=== PATIENT | female | born 1945 | race Caucasian/White ===

== ENCOUNTER 2018-11-21 13:01 | Emergency (ER) | payer OTHER, MEDICARE ==
[2018-11-21 13:48] VITALS: BP 133/72; PULSE 67; TEMP 98.5; BMI 51.6
--- NOTE | 2018-11-21 13:50 | PDOC ---
History of Present Illness - General Chief Complaint: Pain, Acute Stated Complaint: LEFT ABD PAIN Time Seen by Provider: 11/21/18 13:33 - History of Present Illness Initial Comments: 11/21/18 14:03 73f with pmh of advanced alzheimer's presents to the ed with aide for LLQ pain since last night. Although the patient is mildly aphasic, uses a long of the wrong words in her speech, she describes the pain a moving down her side. She appears anxious and hyperventilating. Aide doesn't know anything about the rest of the patient's history execept that the patient has a wound to the left leg for which she's not taking abx for Past History - Past Medical History Allergies/Adverse Reactions: Allergies Allergy/AdvReac Type Severity Reaction Status Date / Time No Known Allergies Allergy Verified 11/21/18 13:20 Home Medications: Ambulatory Orders Valacyclovir HCl [Valtrex -] 1,000 mg PO TID 7 Days #21 tablet 11/21/18 - Suicide/Smoking/Psychosocial Hx Smoking History: Unknown if ever smoked Hx Alcohol Use: No Drug/Substance Use Hx: No Review of Systems - Review of Systems Able to Perform ROS?: No (demented.) *Physical Exam - Vital Signs Last Vital Signs Temp Pulse Resp BP Pulse Ox 98.5 F 67 18 133/72 100 11/21/18 13:02 11/21/18 13:02 11/21/18 13:02 11/21/18 13:02 11/21/18 13:02 - Physical Exam General Appearance: Yes: Thin HEENT: positive: EOMI, MESERET, Normal ENT Inspection Respiratory/Chest: positive: Lungs Clear, Normal Breath Sounds. negative: Chest Tender, Respiratory Distress Cardiovascular: positive: Regular Rhythm, Regular Rate, S1, S2 Gastrointestinal/Abdominal: positive: Tender (LLQ, ovoid macular rash over skin fold. ) Extremity: positive: Other (3x3 circular open purulent wound over left anterior leg. ) Integumentary: positive: Other (possible early papular rash over back dermatome) Neurologic: positive: Alert, Other (exquisitely demented) ED Treatment Course - LABORATORY CBC & Chemistry Diagram: 11/21/18 13:42 11/21/18 13:42 Medical Decision Making - Medical Decision Making 11/21/18 15:39 Shingles vs diverticulitis vs constipation vs volvulus Due to the patient's poor history and ability to express her pain clearly we will be liberal with testing for basic labs, cxr, lactate, cultures and ct abd/ pelvis 11/21/18 17:13 All labs negative, Ct abdomen and pelvis negative for acute processes. No constipation, no volvulus. Will treat for shingles with valacyclovir and send RX. Ok to discharge. *DC/Admit/Observation/Transfer Diagnosis at time of Disposition: Shingles - Discharge Dispostion Disposition: HOME Condition at time of disposition: Stable Decision to Admit order: No - Prescriptions Prescriptions: Valacyclovir HCl [Valtrex -] 1,000 mg PO TID 7 Days #21 tablet - Referrals - Patient Instructions Printed Discharge Instructions: DI for Shingles Additional Instructions: Come back to the emergency department fcor any new, worsening or concerning symptoms. 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 - Post Discharge Activity
[2018-11-21] MEDS ORDERED: morphine CARPU-JECT 2 MG/1 ML DISP.SYRIN IVPUSH ONE (14:31)
[2018-11-21] MEDS ORDERED: morphine SULFATE 4 MG/ML VIAL ONE (14:41)
[2018-11-21 14:45] LABS: BASO % 0.9 % (0-2.0); EOS % 2.6 % (0-4.5); HEMATOCRIT 37.7 % (32.4-45.2); HEMOGLOBIN 12.3 GM/dl (10.7-15.3); LYMPH % 29.8 % (8-40); MCH 28.5 pg (25.7-33.7); MCHC 32.6 g/dl (32.0-36.0); MEAN CELL VOLUME 87.3 fl (80-96); MEAN PLT VOLUME 8.3 fl (7.5-11.1); MONO % 12.2 % (3.8-10.2); NEUT % 54.5 % (42.8-82.8); PLATELET COUNT 237 K/MM3 (134-434); RBC 4.32 M/mm3 (3.60-5.2); RDW 12.6 % (11.6-15.6); WHITE BLOOD COUNT 5.4 K/mm3 (4.0-10.8)
[2018-11-21 14:54] LABS: ALBUMIN 3.7 g/dl (3.4-5.0); ALK PHOS 91 U/L (45-117); ANION GAP 7 MMOL/L (8-16); BILIRUBIN,TOTAL 0.7 mg/dl (0.2-1); BLOOD UREA NITROGEN 15 mg/dl (7-18); CHLORIDE 106 mmol/L (98-107); CO2 25 mmol/L (21-32); CREATININE 0.9 mg/dl (0.55-1.3); GLUCOSE,RANDOM 87 mg/dl (74-106); POTASSIUM 3.7 mmol/L (3.5-5.1); SGOT/AST 22 U/L (15-37); SGPT/ALT 14 U/L (13-61); SODIUM 138 mmol/L (136-145); TOT PROT 6.6 g/dl (6.4-8.2)
--- NOTE | 2018-11-21 15:42 | PDOC ---
Attending Attestation - Resident Resident Name: Shane Rodriguez - ED Attending Attestation I have performed the following: I have examined & evaluated the patient, The case was reviewed & discussed with the resident, I agree w/resident's findings & plan - HPI HPI: 11/21/18 15:37 73-year-old female with history of dementia, chronic left lower extremity wound , presents brought in by aid with left lower quadrant abdominal pain today. Patient had 2 or 3 separate episodes of severe left lower quadrant pain, no associated nausea/vomiting/diarrhea/constipation, last bowel movement was yesterday and was within normal limits. Although history/review of systems Limited by dementia, no reports of dysuria or frequency or hematuria. No known surgical history, no other complaints. No fevers or chills - Physicial Exam PE: 11/21/18 15:38 Vital signs are within normal limits Patient is alert and well-appearing, baseline dementia, following all commands and conversant with occasional nonsensical speech, which is her baseline per home health aide No jaundice or pallor, moist mucosa Heart is regular, lungs are clear Abdomen is soft/distended. Slight discomfort to deep palpation in the left lower quadrant, no guarding or rebound. No CVA tenderness. 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 Neurovascular intact distally. Skin notable for about 3 cm rounded patch of erythema in a skin fold in the left lower quadrant, and associated subtle area of papular erythema in the left low back, similar dermatome T11 or T12. These lesions are very sensitive to very light touch, no associated cellulitis or induration or discharge - Medical Decision Making 11/21/18 15:40 73-year-old female with left lower quadrant abdominal pain, non-peritoneal abdominal exam and findings that could be consistent with early shingles and T11 or T12 dermatome. Hemodynamically stable, no other red flags on history or physical exam. Labs, urinalysis are within normal limits without leukocytosis or evidence of infection on urinalysis CT of the abdomen and pelvis to assess left lower quadrant pain EKG without acute pathology If above is within normal limits, will treat for shingles with PCP follow-up 11/21/18 17:10 labs, ua, ctap all wnl. well appearing without further complaints of pain. at bedside confirms pt at baseline will treat for zoster with valtrex, stable for dc and understands return criteria Heart Score/ECG Review #1 ECG reviewed & interpreted by me at: 14:06 General ECG Interpretation: Sinus Rhythm, Normal Rate (70), Normal Intervals ( left bundle branch block pattern with qrs 130, qtc 470), No acute ischemic changes Compared to previous ECG there are: Previous ECG unavail
[2018-11-21 16:10] LABS: LIPASE 224 U/L (73-393)
[2018-11-21] MEDS ORDERED: valACYclovir HCL 1000 MG TABLET PO ONE (17:07)
[2018-11-21] MEDS ORDERED: valACYclovir HCL 500 MG TABLET (FP) ONE (17:09)
--- NOTE | 2018-11-22 12:23 | EKG ---
Test Reason : Blood Pressure : / mmHG Vent. Rate : 070 BPM Atrial Rate : 070 BPM P-R Int : 176 ms QRS Dur : 130 ms QT Int : 436 ms P-R-T Axes : 067 099 016 degrees QTc Int : 470 ms NORMAL SINUS RHYTHM POSSIBLE LEFT ATRIAL ENLARGEMENT RIGHTWARD AXIS NON-SPECIFIC INTRA-VENTRICULAR CONDUCTION BLOCK ABNORMAL ECG WHEN COMPARED WITH ECG OF 30-OCT-2003 15:50, PREMATURE SUPRAVENTRICULAR COMPLEXES ARE NO LONGER PRESENT MINIMAL CRITERIA FOR ANTEROSEPTAL INFARCT ARE NO LONGER PRESENT T WAVE INVERSION NOW EVIDENT IN INFERIOR LEADS Confirmed by NIKKI PHILLIPS, ANATOLIY ([id number]) on 11/22/2018 12:23:31 PM Referred By: BRENDA MCNEAL Confirmed By:ANATOLIY JORDAN MD
== END 2018-11-21 17:29 | disposition home or self-care (01) ==
LOC: FER 13:01
PROC: 3E033NZ Introduction of Analgesics, Hypnotics, Sedatives into Peripheral Vein, Percutaneous Approach (ICD-10-PCS; principal; 2018-11-21)
DX: B02.9 Zoster without complications (principal)
CPT/HCPCS: 36415; 71045-TC-FY; 74177-TC; 80053; 81003; 82550; 83605; 83690; 84484; 85025; 87040; 87070; 87205; 93005; 96374; 99283-25

== ENCOUNTER 2018-12-21 16:40 | Observation (INO) | payer OTHER, MEDICARE ==
[2018-12-21 18:18] LABS: BASO % 1.9 % (0-2.0); EOS % 2.9 % (0-4.5); HEMOGLOBIN 13.6 GM/dl (10.7-15.3); LYMPH % 25.9 % (8-40); MCH 29.7 pg (25.7-33.7); MCHC 34.1 g/dl (32.0-36.0); MEAN CELL VOLUME 87.1 fl (80-96); MEAN PLT VOLUME 8.2 fl (7.5-11.1); MONO % 10.9 % (3.8-10.2); NEUT % 58.4 % (42.8-82.8); PLATELET COUNT 252 K/MM3 (134-434); RBC 4.59 M/mm3 (3.60-5.2); RDW 13.4 % (11.6-15.6); WHITE BLOOD COUNT 6.6 K/mm3 (4.0-10.8)
[2018-12-21 18:32] LABS: CALCIUM 9.7 mg/dl (8.5-10); CREATININE 0.9 mg/dl (0.55-1.3); POTASSIUM 3.5 mmol/L (3.5-5.1)
--- NOTE | 2018-12-21 19:02 | PDOC ---
Documentation entered by Linda Vazquez SCRIBE, acting as scribe for Anita Bhagat MD. Anita Bhagat MD: This documentation has been prepared by the Taylor kasper Xhesika, SCRIBE, under my direction and personally reviewed by me in its entirety. I confirm that the documentation accurately reflects all work, treatment, procedures, and medical decision making performed by me. History of Present Illness - General History Source: Patient, Spouse Exam Limitations: No Limitations, Dementia - History of Present Illness Initial Comments: 12/21/18 18:20 The patient is a 73 year old female, with a significant PMH of AVR, PPM, hypothyroidism, chronic L lower extremity wound, Alzheimer's and Shingles who presents to the emergency department with 10 days of L shoulder pain. As per , the patient has been having trouble sleeping, was advised to take 1 tablet of melatonin, took her first dose yesterday and the patient slept from 10pm last night -2pm this afternoon. As per , he received a call at 10: 30am today from patients aid stating the patient is crying from excruciating L shoulder pain. The patient describes the L shoulder pain as sharp intermittent pain that radiates down her left arm. Pt is a poor historian due to alzheimer's dementia. The patient denies any recent falls or trauma. The patient denies chest pain, shortness of breath or dizziness. The patient denies fever, chills, nausea, vomiting, diarrhea or constipation. The patient denies dysuria, frequency, urgency or hematuria. Allergy: latex, penicillins Social History: None reported PCP: Dr. Emiliano Lucas Dental Technician: Vinnie Briscoe <Anita Bhagat - Last Filed: 12/21/18 19:02> <Mony Gay - Last Filed: 12/21/18 19:50> - General Chief Complaint: Pain, Acute Stated Complaint: LEFT ARM PAIN Past History - Suicide/Smoking/Psychosocial Hx Smoking History: Unknown if ever smoked Hx Alcohol Use: No Drug/Substance Use Hx: No <Anita Bhagat - Last Filed: 12/21/18 19:02> <Mony Gay - Last Filed: 12/21/18 19:50> - Past Medical History Allergies/Adverse Reactions: Allergies Allergy/AdvReac Type Severity Reaction Status Date / Time erythromycin base Allergy Verified 12/21/18 17:46 latex Allergy Verified 12/21/18 17:46 oxytetracycline Allergy Verified 12/21/18 17:46 [From Terramycin] Penicillins Allergy Verified 12/21/18 17:46 povidone-iodine Allergy Verified 12/21/18 17:46 [From Betadine] procaine [From Novocain] Allergy Verified 12/21/18 17:46 soap [From Betadine] Allergy Verified 12/21/18 17:46 aueomycin Allergy Uncoded 12/21/18 17:46 tape Allergy Uncoded 12/21/18 17:46 Home Medications: Ambulatory Orders Valacyclovir HCl [Valtrex -] 1,000 mg PO TID 7 Days #21 tablet 11/21/18 Clopidogrel Bisulfate [Plavix] 75 mg PO DAILY 12/21/18 Levothyroxine [Synthroid -] 100 mcg PO DAILY 12/21/18 Review of Systems - Review of Systems Able to Perform ROS?: Yes Comments:: 12/21/18 18:24 GENERAL/CONSTITUTIONAL: No fever or chills. No weakness. HEAD, EYES, EARS, NOSE AND THROAT: No change in vision. No ear pain or discharge. No sore throat. GASTROINTESTINAL: No nausea, vomiting, diarrhea or constipation. GENITOURINARY: No dysuria, frequency, or change in urination. CARDIOVASCULAR: No chest pain or shortness of breath. RESPIRATORY: No cough, wheezing, or hemoptysis. MUSCULOSKELETAL: (+) L shoulder pain. No joint or muscle swelling or pain. No neck or back pain. SKIN: No rash NEUROLOGIC: No headache, vertigo, loss of consciousness, or change in strength/ sensation. ENDOCRINE: No increased thirst. No abnormal weight change. HEMATOLOGIC/LYMPHATIC: No anemia, easy bleeding, or history of blood clots. ALLERGIC/IMMUNOLOGIC: No hives or skin allergy. All Other Systems: Reviewed and Negative <Nassef,Yomna - Last Filed: 12/21/18 19:02> *Physical Exam - Vital Signs Last Vital Signs Temp Pulse Resp BP Pulse Ox 97.8 F 72 16 111/70 100 12/21/18 16:41 12/21/18 16:41 12/21/18 16:41 12/21/18 16:41 12/21/18 16:41 - Physical Exam Comments: 12/21/18 19:01 GENERAL: Awake, alert, and fully oriented, in no acute distress HEAD: No signs of trauma EYES: PERRLA, EOMI, sclera anicteric, conjunctiva clear ENT: Auricles normal inspection, hearing grossly normal, nares patent, oropharynx clear without exudates. Moist mucosa NECK: Normal ROM, supple, no lymphadenopathy, JVD, or masses LUNGS: Breath sounds equal, clear to auscultation bilaterally. No wheezes, and no crackles HEART: Regular rate and rhythm, normal S1 and S2, no murmurs, rubs or gallops ABDOMEN: Soft, nontender, normoactive bowel sounds. No guarding, no rebound. No masses EXTREMITIES: Normal range of motion, no edema. No cords, erythema, or tenderness NEUROLOGICAL: Normal speech, cranial nerves intact, equal strength and sensation b/l SKIN: Warm, Dry, normal turgor, no rashes or lesions noted. <Nassef,Yomna - Last Filed: 12/21/18 19:02> - Vital Signs Last Vital Signs Temp Pulse Resp BP Pulse Ox 97.8 F 72 16 111/70 100 12/21/18 16:41 12/21/18 16:41 12/21/18 16:41 12/21/18 16:41 12/21/18 16:41 <Mony Gay - Last Filed: 12/21/18 19:50> ED Treatment Course - LABORATORY CBC & Chemistry Diagram: 12/21/18 18:03 12/21/18 18:03 - ADDITIONAL ORDERS Additional order review: Laboratory Results 12/21/18 12/21/18 18:03 18:03 Sodium 140 Potassium 3.5 Chloride 104 Carbon Dioxide 23 Anion Gap 13 BUN 16 Creatinine 0.9 Est GFR (CKD-EPI)AfAm 73.52 Est GFR (CKD-EPI)NonAf 63.43 Random Glucose 87 Calcium 9.7 Total Bilirubin 1.0 AST 25 ALT 18 Alkaline Phosphatase 86 Troponin I < 0.03 Total Protein 7.0 Albumin 4.0 12/21/18 18:03 RBC 4.59 MCV 87.1 MCHC 34.1 RDW 13.4 MPV 8.2 Neutrophils % 58.4 Lymphocytes % 25.9 Monocytes % 10.9 H Eosinophils % 2.9 Basophils % 1.9 - RADIOLOGY Radiology Studies Ordered: Category Date Time Status CHEST X-RAY PORTABLE* [RAD] Stat Radiology 12/21/18 17:43 Taken SHOULDER-LEFT [RAD] Stat Radiology 12/21/18 17:44 Taken <Anita Bhagat - Last Filed: 12/21/18 19:02> - LABORATORY CBC & Chemistry Diagram: 12/21/18 18:03 12/21/18 18:03 - ADDITIONAL ORDERS Additional order review: Laboratory Results 12/21/18 12/21/18 18:03 18:03 Sodium 140 Potassium 3.5 Chloride 104 Carbon Dioxide 23 Anion Gap 13 BUN 16 Creatinine 0.9 Est GFR (CKD-EPI)AfAm 73.52 Est GFR (CKD-EPI)NonAf 63.43 Random Glucose 87 Calcium 9.7 Total Bilirubin 1.0 AST 25 ALT 18 Alkaline Phosphatase 86 Troponin I < 0.03 Total Protein 7.0 Albumin 4.0 12/21/18 18:03 RBC 4.59 MCV 87.1 MCHC 34.1 RDW 13.4 MPV 8.2 Neutrophils % 58.4 Lymphocytes % 25.9 Monocytes % 10.9 H Eosinophils % 2.9 Basophils % 1.9 <Mony Gay - Last Filed: 12/21/18 19:50> Medical Decision Making - Medical Decision Making 12/21/18 19:45 Care of this patient received from Dr Bhagat. Because of the unclear nature of the patient's severe left upper arm/shoulder pain, patient will be admitted, observation status Case discussed with [facility] : patient will be admitted, telemetry observation status for full rule/out of NC and further evaluation of left arm pain. Also, assessment for further home care support will be addressed. <Mony Gay - Last Filed: 12/21/18 19:50> *DC/Admit/Observation/Transfer - Discharge Dispostion Decision to Admit order Date/Time: Decision to Admit Order Category Date Time Status Decision to Admit to Hospital Routine Admission 12/21/18 18:58 Ordered <Anita Bhagat - Last Filed: 12/21/18 19:02> <Mony Gay - Last Filed: 12/21/18 19:50> Diagnosis at time of Disposition: Left arm pain Dementia Qualifiers: Dementia type: unspecified type Dementia behavioral disturbance: with behavioral disturbance Qualified Code(s): F03.91 - Unspecified dementia with behavioral disturbance - Discharge Dispostion Condition at time of disposition: Fair
--- NOTE | 2018-12-21 19:14 | PDOC ---
*Physical Exam - Vital Signs Last Vital Signs Temp Pulse Resp BP Pulse Ox 97.8 F 72 16 111/70 100 12/21/18 16:41 12/21/18 16:41 12/21/18 16:41 12/21/18 16:41 12/21/18 16:41 ED Treatment Course - LABORATORY CBC & Chemistry Diagram: 12/21/18 18:03 12/21/18 18:03 - ADDITIONAL ORDERS Additional order review: Laboratory Results 12/21/18 12/21/18 18:03 18:03 Sodium 140 Potassium 3.5 Chloride 104 Carbon Dioxide 23 Anion Gap 13 BUN 16 Creatinine 0.9 Est GFR (CKD-EPI)AfAm 73.52 Est GFR (CKD-EPI)NonAf 63.43 Random Glucose 87 Calcium 9.7 Total Bilirubin 1.0 AST 25 ALT 18 Alkaline Phosphatase 86 Troponin I < 0.03 Total Protein 7.0 Albumin 4.0 12/21/18 18:03 RBC 4.59 MCV 87.1 MCHC 34.1 RDW 13.4 MPV 8.2 Neutrophils % 58.4 Lymphocytes % 25.9 Monocytes % 10.9 H Eosinophils % 2.9 Basophils % 1.9 *DC/Admit/Observation/Transfer Diagnosis at time of Disposition: Left arm pain Dementia Qualifiers: Dementia type: unspecified type Dementia behavioral disturbance: with behavioral disturbance Qualified Code(s): F03.91 - Unspecified dementia with behavioral disturbance - Discharge Dispostion Condition at time of disposition: Fair Decision to Admit order: Yes - Referrals - Patient Instructions - Post Discharge Activity
--- NOTE | 2018-12-21 19:32 | HP ---
CHIEF COMPLAINT:Left shoulder pain PCP:Dr. Emiliano Lucas HISTORY OF PRESENT ILLNESS: Linda Honeycutt is a 73 year old female, with a significant PMH of AVR, PPM, hypothyroidism, chronic L lower extremity wound, Alzheimer's and Shingles who presents to the emergency department with 10 days of L shoulder pain, pt is poor historian due to Alzheimer's. 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 pt has 2 more days of valcyclovir, as per pt did not take everyday. pt in ED, ambulating in room, holding cane and red purse in left arm, has pain when lifting arm, but able to pull pants up without pain. pt confused, ER course was notable for: (1)1st trop 0.03 (2)EKG unchanged (3)labs wnl Recent Travel: PAST MEDICAL HISTORY:AVR, PPM, hypothyroidism, chronic L lower extremity wound , Alzheimer's and Shingles PAST SURGICAL HISTORY: Social History: Smoking:unknown Alcohol:no Drugs: no Family History: Allergies erythromycin base Allergy (Verified 12/21/18 17:46) latex Allergy (Verified 12/21/18 17:46) oxytetracycline [From Terramycin] Allergy (Verified 12/21/18 17:46) Penicillins Allergy (Verified 12/21/18 17:46) povidone-iodine [From Betadine] Allergy (Verified 12/21/18 17:46) procaine [From Novocain] Allergy (Verified 12/21/18 17:46) soap [From Betadine] Allergy (Verified 12/21/18 17:46) aueomycin Allergy (Uncoded 12/21/18 17:46) tape Allergy (Uncoded 12/21/18 17:46) HOME MEDICATIONS: Home Medications Medication Instructions Recorded Valacyclovir HCl [Valtrex -] 1,000 mg PO TID 7 Days #21 tablet 11/21/18 Clopidogrel Bisulfate [Plavix] 75 mg PO DAILY 12/21/18 Levothyroxine [Synthroid -] 100 mcg PO DAILY 12/21/18 REVIEW OF SYSTEMS Unable to assess, pt with dementia PHYSICAL EXAMINATION Vital Signs - 24 hr 12/21/18 16:41 Temperature 97.8 F Pulse Rate 72 Respiratory 16 Rate Blood Pressure 111/70 O2 Sat by Pulse 100 Oximetry (%) GENERAL: Awake, alert, and fully oriented, in no acute distress. HEAD: Normal with no signs of trauma. EYES: Pupils equal, round and reactive to light, extraocular movements intact, sclera anicteric, conjunctiva clear. No lid lag. EARS, NOSE, THROAT: Ears normal, nares patent, oropharynx clear without exudates. Moist mucous membranes. NECK: Normal range of motion, supple without lymphadenopathy, JVD, or masses. LUNGS: Breath sounds equal, clear to auscultation bilaterally. No wheezes, and no crackles. No accessory muscle use. HEART: Regular rate and rhythm, normal S1 and S2 without murmur, rub or gallop. ABDOMEN: Soft, nontender, not distended, normoactive bowel sounds, no guarding, no rebound, no masses. No hepatomegaly or splenomegaly. MUSCULOSKELETAL: pain when lifting left arm, . No bony deformities or tenderness. No CVA tenderness. UPPER EXTREMITIES: 2+ pulses, warm, well-perfused. No cyanosis. No clubbing. No peripheral edema. LOWER EXTREMITIES: 2+ pulses, warm, well-perfused. No calf tenderness. No peripheral edema. NEUROLOGICAL: Cranial nerves II-XII intact. Normal speech. Normal gait. PSYCHIATRIC: uncooperative. Good eye contact. Appropriate mood and affect. SKIN: mild redness on left side, no crusted vesicles noted, Warm, dry, normal turgor, no rashes or lesions noted, normal capillary refill. Laboratory Results - last 24 hr 12/21/18 12/21/18 12/21/18 18:03 18:03 18:03 WBC 6.6 RBC 4.59 Hgb 13.6 Hct 40.0 MCV 87.1 MCH 29.7 MCHC 34.1 RDW 13.4 Plt Count 252 MPV 8.2 Absolute Neuts (auto) 3.9 Neutrophils % 58.4 Lymphocytes % 25.9 Monocytes % 10.9 H Eosinophils % 2.9 Basophils % 1.9 Sodium 140 Potassium 3.5 Chloride 104 Carbon Dioxide 23 Anion Gap 13 BUN 16 Creatinine 0.9 Est GFR (CKD-EPI)AfAm 73.52 Est GFR (CKD-EPI)NonAf 63.43 Random Glucose 87 Calcium 9.7 Total Bilirubin 1.0 AST 25 ALT 18 Alkaline Phosphatase 86 Troponin I < 0.03 Total Protein 7.0 Albumin 4.0 ASSESSMENT/PLAN: Linda Honeycutt is a 73 year old female, with a significant PMH of AVR, PPM, hypothyroidism, chronic L lower extremity wound, Alzheimer's and Shingles admitted Admitting Diagnosis Left shoulder pain r/o UT Chronic Problems AVR PPM Hypothyroidism Chronic Left lower ext wound Alzheimer's Shingles A/P #Left shoulder pain r/o UT -tele obs -EKG NSR -1st trop 0.03 -serial trops -cardio consult -xray of left shoulder-report pending -pain mgt -echo ro be done in AM #AVR #PPM -on Plavix -BP stable -not on meds #Shingles -valcyclovir to complete 2 more days #Alzheimer's -risk for wandering -supportive care -not on meds -QTC prolonged, no Haldol -will order seroquel 12.5 mg tonight Visit type - Emergency Visit Emergency Visit: Yes Care time: The patient presented to the Emergency Department on the above date and was hospitalized for further evaluation of their emergent condition. - New Patient This patient is new to me today: Yes Date on this admission: 12/21/18 - Critical Care Critical Care patient: No
[2018-12-21] MEDS ORDERED: QUEtiapine FUMARATE 25 MG TABLET (FP) PO PRN (20:38)
[2018-12-21] MEDS: DOCUSATE SODIUM 100 MG CAPSULE (FP) PO SCH (21:19)
[2018-12-21] MEDS: HEPARIN NA (PORCINE) 5,000 UNITS/ML 1ML VIAL SQ SCH (21:19)
[2018-12-21] MEDS: valACYclovir HCL 500 MG TABLET (FP) PO SCH (21:19)
[2018-12-21] MEDS ORDERED: ACETAMINOPHEN 325 MG TABLET (FP) PO PRN (21:23)
[2018-12-21 23:47] VITALS: BMI 24.7
[2018-12-22] MEDS: valACYclovir HCL 500 MG TABLET (FP) PO SCH (06:42)
[2018-12-22] MEDS ORDERED: LEVOTHYROXINE NA 100 MCG TABLET (FP) PO SCH (07:00)
[2018-12-22 08:03] LABS: HEMATOCRIT 33.9 % (32.4-45.2); HEMOGLOBIN 11.6 GM/dl (10.7-15.3); MCH 29.8 pg (25.7-33.7); MCHC 34.1 g/dl (32.0-36.0); MEAN CELL VOLUME 87.2 fl (80-96); MEAN PLT VOLUME 8.3 fl (7.5-11.1); PLATELET COUNT 202 K/MM3 (134-434); RBC 3.89 M/mm3 (3.60-5.2); RDW 13.5 % (11.6-15.6); WHITE BLOOD COUNT 5.5 K/mm3 (4.0-10.8)
--- NOTE | 2018-12-22 09:03 | PN ---
Physical Exam: SUBJECTIVE: Patient seen and examined OBJECTIVE: Vital Signs Period Temp Pulse Resp BP Sys/Allen Pulse Ox Last 24 Hr 97.7 F-97.8 F 72-106 16-18 111-123/70-72 97-100 GENERAL: The patient is awake, alert, and fully oriented, in no acute distress. HEAD: Normal with no signs of trauma. EYES: PERRL, extraocular movements intact, sclera anicteric, conjunctiva clear. No ptosis. ENT: Ears normal, nares patent, oropharynx clear without exudates, moist mucous membranes. NECK: Trachea midline, full range of motion, supple. LUNGS: Breath sounds equal, clear to auscultation bilaterally, no wheezes, no crackles, no accessory muscle use. HEART: Regular rate and rhythm, S1, S2 without murmur, rub or gallop. ABDOMEN: Soft, nontender, nondistended, normoactive bowel sounds, no guarding, no rebound, no hepatosplenomegaly, no masses. EXTREMITIES: 2+ pulses, warm, well-perfused, no edema. NEUROLOGICAL: Cranial nerves II through XII grossly intact. Normal speech, gait not observed. PSYCH: Normal mood, normal affect. SKIN: Warm, dry, normal turgor, no rashes or lesions noted Laboratory Results - last 24 hr 12/21/18 12/21/18 12/21/18 18:03 18:03 18:03 WBC 6.6 RBC 4.59 Hgb 13.6 Hct 40.0 MCV 87.1 MCH 29.7 MCHC 34.1 RDW 13.4 Plt Count 252 MPV 8.2 Absolute Neuts (auto) 3.9 Neutrophils % 58.4 Lymphocytes % 25.9 Monocytes % 10.9 H Eosinophils % 2.9 Basophils % 1.9 Sodium 140 Potassium 3.5 Chloride 104 Carbon Dioxide 23 Anion Gap 13 BUN 16 Creatinine 0.9 Est GFR (CKD-EPI)AfAm 73.52 Est GFR (CKD-EPI)NonAf 63.43 Random Glucose 87 Calcium 9.7 Total Bilirubin 1.0 AST 25 ALT 18 Alkaline Phosphatase 86 Troponin I < 0.03 B-Natriuretic Peptide Total Protein 7.0 Albumin 4.0 TSH Urine Color Urine Appearance Urine pH Urine Protein Urine Glucose (UA) Urine Ketones Urine Blood Urine Nitrite Urine Bilirubin Urine Urobilinogen Ur Leukocyte Esterase 12/21/18 12/21/1812/21/19 18:03 18:03 19:25 WBC RBC Hgb Hct MCV MCH MCHC RDW Plt Count MPV Absolute Neuts (auto) Neutrophils % Lymphocytes % Monocytes % Eosinophils % Basophils % Sodium Potassium Chloride Carbon Dioxide Anion Gap BUN Creatinine Est GFR (CKD-EPI)AfAm Est GFR (CKD-EPI)NonAf Random Glucose Calcium Total Bilirubin AST ALT Alkaline Phosphatase Troponin I B-Natriuretic Peptide 237.3 H Total Protein Albumin TSH 0.11 L Urine Color Yellow Urine Appearance Clear Urine pH 7.0 Urine Protein Negative Urine Glucose (UA) Negative Urine Ketones 1+ H Urine Blood Negative Urine Nitrite Negative Urine Bilirubin Negative Urine Urobilinogen 1.0 Ur Leukocyte Esterase Negative 12/22/18 07:26 WBC 5.5 RBC 3.89 Hgb 11.6 Hct 33.9 D MCV 87.2 MCH 29.8 MCHC 34.1 RDW 13.5 Plt Count 202 MPV 8.3 Absolute Neuts (auto) Neutrophils % Lymphocytes % Monocytes % Eosinophils % Basophils % Sodium Potassium Chloride Carbon Dioxide Anion Gap BUN Creatinine Est GFR (CKD-EPI)AfAm Est GFR (CKD-EPI)NonAf Random Glucose Calcium Total Bilirubin AST ALT Alkaline Phosphatase Troponin I B-Natriuretic Peptide Total Protein Albumin TSH Urine Color Urine Appearance Urine pH Urine Protein Urine Glucose (UA) Urine Ketones Urine Blood Urine Nitrite Urine Bilirubin Urine Urobilinogen Ur Leukocyte Esterase Active Medications Generic Name Dose Route Start Last Admin Trade Name Freq PRN Reason Stop Dose Admin Acetaminophen 650 mg 12/21/18 21:23 Tylenol - PO Q4H PRN PAIN LEVEL 1-5 Clopidogrel Bisulfate 75 mg 12/22/18 10:00 Plavix - PO DAILY [facility] Docusate Sodium 100 mg 12/21/18 22:00 12/21/18 21:19 Colace - PO Not Given BID [facility] Heparin Sodium (Porcine) 5,000 unit 12/21/18 22:00 12/21/18 21:19 Heparin - SQ Not Given BID [facility] Levothyroxine Sodium 100 mcg 12/22/18 07:00 12/22/18 06:43 Synthroid - PO Not Given DAILY@0700 [facility] Quetiapine Fumarate 12.5 mg 12/21/18 20:38 Seroquel - PO ONCE PRN AGITATION Valacyclovir HCl 1,000 mg 12/21/18 22:00 12/22/18 06:42 Valtrex - PO Not Given TID [facility] ASSESSMENT/PLAN:
[2018-12-22] MEDS ORDERED: CLOPIDOGREL BISULFATE 75 MG TABLET (FP) PO SCH (10:00)
[2018-12-22 10:10] LABS: ALBUMIN 3.3 g/dl (3.4-5.0); BILIRUBIN,TOTAL 1.1 mg/dl (0.2-1); CALCIUM 9.1 mg/dl (8.5-10); CREATININE 0.8 mg/dl (0.55-1.3); MAGNESIUM 2.2 mg/dL (1.8-2.4); POTASSIUM 4.4 mmol/L (3.5-5.1); TOT PROT 5.8 g/dl (6.4-8.2)
[2018-12-22 10:36] VITALS: BP 122/70; PULSE 74; TEMP 97.6
[2018-12-22] MEDS: HEPARIN NA (PORCINE) 5,000 UNITS/ML 1ML VIAL SQ SCH (10:53)
[2018-12-22] MEDS: DOCUSATE SODIUM 100 MG CAPSULE (FP) PO SCH (10:53)
--- NOTE | 2018-12-22 11:45 | DS ---
Physical Exam: SUBJECTIVE: Patient seen and examined oob to chair. present. OBJECTIVE: Vital Signs Period Temp Pulse Resp BP Sys/Allen Pulse Ox Last 24 Hr 97.6 F-97.8 F 72-106 16-18 111-123/70-72 97-100 PHYSICAL EXAM GENERAL: The patient is awake. Oriented x 1. Speech is disjointed, at times nonsensical. Becomes quickly agitated but redirectable. LUNGS: Breath sounds equal, clear to auscultation bilaterally, no wheezes, no crackles, no accessory muscle use. HEART: Regular rate and rhythm, S1, S2 ABDOMEN: Soft, nontender, nondistended UPPER EXTREMITIES: 2+ pulses, warm, well-perfused, no edema. Points to head of left humerus as area of pain, will not allow further exam LOWER EXTREMITIES: Bilateral pedal and LE edema; vascular wound to anterior LLE , dressing removed, treated with silvadene; difficult to visualize wound bed and patient does not allow further exam; no sign of surrounding edema, erythema , fluctuance, no odor, no signs of cellulitis NEUROLOGICAL: Cranial nerves II through XII grossly intact. Steady gait. Laboratory Results - last 24 hr 12/21/18 12/21/18 12/21/18 18:03 18:03 18:03 WBC 6.6 RBC 4.59 Hgb 13.6 Hct 40.0 MCV 87.1 MCH 29.7 MCHC 34.1 RDW 13.4 Plt Count 252 MPV 8.2 Absolute Neuts (auto) 3.9 Neutrophils % 58.4 Lymphocytes % 25.9 Monocytes % 10.9 H Eosinophils % 2.9 Basophils % 1.9 Sodium 140 Potassium 3.5 Chloride 104 Carbon Dioxide 23 Anion Gap 13 BUN 16 Creatinine 0.9 Est GFR (CKD-EPI)AfAm 73.52 Est GFR (CKD-EPI)NonAf 63.43 Random Glucose 87 Calcium 9.7 Magnesium Total Bilirubin 1.0 AST 25 ALT 18 Alkaline Phosphatase 86 Troponin I < 0.03 B-Natriuretic Peptide Total Protein 7.0 Albumin 4.0 TSH Urine Color Urine Appearance Urine pH Urine Protein Urine Glucose (UA) Urine Ketones Urine Blood Urine Nitrite Urine Bilirubin Urine Urobilinogen Ur Leukocyte Esterase 12/21/18 12/21/18 12/21/18 18:03 18:03 19:25 WBC RBC Hgb Hct MCV MCH MCHC RDW Plt Count MPV Absolute Neuts (auto) Neutrophils % Lymphocytes % Monocytes % Eosinophils % Basophils % Sodium Potassium Chloride Carbon Dioxide Anion Gap BUN Creatinine Est GFR (CKD-EPI)AfAm Est GFR (CKD-EPI)NonAf Random Glucose Calcium Magnesium Total Bilirubin AST ALT Alkaline Phosphatase Troponin I B-Natriuretic Peptide 237.3 H Total Protein Albumin TSH 0.11 L Urine Color Yellow Urine Appearance Clear Urine pH 7.0 Urine Protein Negative Urine Glucose (UA) Negative Urine Ketones 1+ H Urine Blood Negative Urine Nitrite Negative Urine Bilirubin Negative Urine Urobilinogen 1.0 Ur Leukocyte Esterase Negative 12/22/18 12/22/18 12/22/18 07:26 09:30 09:40 WBC 5.5 RBC 3.89 Hgb 11.6 Hct 33.9 D MCV 87.2 MCH 29.8 MCHC 34.1 RDW 13.5 Plt Count 202 MPV 8.3 Absolute Neuts (auto) Neutrophils % Lymphocytes % Monocytes % Eosinophils % Basophils % Sodium Cancelled Potassium Cancelled Chloride Cancelled Carbon Dioxide Cancelled Anion Gap Cancelled BUN Cancelled Creatinine Cancelled Est GFR (CKD-EPI)AfAm Cancelled Est GFR (CKD-EPI)NonAf Cancelled Random Glucose Cancelled Calcium Cancelled Magnesium Cancelled Total Bilirubin Cancelled AST Cancelled ALT Cancelled Alkaline Phosphatase Cancelled Troponin I < 0.03 B-Natriuretic Peptide Total Protein Cancelled Albumin Cancelled TSH Urine Color Urine Appearance Urine pH Urine Protein Urine Glucose (UA) Urine Ketones Urine Blood Urine Nitrite Urine Bilirubin Urine Urobilinogen Ur Leukocyte Esterase 12/22/18 09:48 WBC RBC Hgb Hct MCV MCH MCHC RDW Plt Count MPV Absolute Neuts (auto) Neutrophils % Lymphocytes % Monocytes % Eosinophils % Basophils % Sodium 142 Potassium 4.4 Chloride 109 H Carbon Dioxide 24 Anion Gap 9 BUN 16 Creatinine 0.8 Est GFR (CKD-EPI)AfAm 84.77 Est GFR (CKD-EPI)NonAf 73.14 Random Glucose 87 Calcium 9.1 Magnesium 2.2 Total Bilirubin 1.1 H AST 25 ALT 14 Alkaline Phosphatase 72 D Troponin I B-Natriuretic Peptide Total Protein 5.8 L Albumin 3.3 L TSH Urine Color Urine Appearance Urine pH Urine Protein Urine Glucose (UA) Urine Ketones Urine Blood Urine Nitrite Urine Bilirubin Urine Urobilinogen Ur Leukocyte Esterase HOSPITAL COURSE: Date of Admission:12/21/18 Date of Discharge: 12/22/18 Pre hospital course 73 year-old female with a PMH significant for Alzheimer's dementia, HTN, HLD, hypothyroidism, aortic valve replacement (2002), PE (2003), PPM, diastolic HF, chronic bilateral lower extremity edema, chronic LLE wound, hypothyroidism, and impingement syndrome of the left shoulder. Patient was brought to ED by her with a complaint of left shoulder pain x 10 days. Patient was placed on observation. Hospital course Patient has pain at the head of the left humerus. Xrays were negative for acute fracture. Patient needs evaluation by an orthopedist. Arrangments have been made for patient to see Dr. Junaid Ludwig later this afternoon. will take patient directly there following discharge. Minutes to complete discharge: 35 Discharge Summary Reason For Visit: PAIN TO UPPER EXTREMITY Current Active Problems Dementia (Acute) Left arm pain (Acute) Condition: Stable - Instructions Referrals: Junaid Gerard DO [Staff Physician] - 12/22/18 2:00 pm Disposition: HOME - Home Medications Comprehensive Discharge Medication List: Ambulatory Orders Valacyclovir HCl [Valtrex -] 1,000 mg PO TID 7 Days #21 tablet 11/21/18 Clopidogrel Bisulfate [Plavix] 75 mg PO DAILY 12/21/18 Levothyroxine [Synthroid -] 100 mcg PO DAILY 12/21/18 This patient is new to me today: Yes Date on this admission: 12/22/18 Emergency Visit: Yes ED Registration Date: 12/21/18 Care time: The patient presented to the Emergency Department on the above date and was hospitalized for further evaluation of their emergent condition. Critical Care patient: No - Discharge Referral Referred to [facility] Med P.C.: No
--- NOTE | 2018-12-22 13:37 | EKG ---
Test Reason : Blood Pressure : / mmHG Vent. Rate : 072 BPM Atrial Rate : 072 BPM P-R Int : 164 ms QRS Dur : 124 ms QT Int : 440 ms P-R-T Axes : 053 089 035 degrees QTc Int : 481 ms NORMAL SINUS RHYTHM POSSIBLE LEFT ATRIAL ENLARGEMENT POSSIBLE ANTERIOR INFARCT , AGE UNDETERMINED NON-SPECIFIC INTRA-VENTRICULAR CONDUCTION DELAY ABNORMAL ECG Confirmed by GERALD KHOURY MD ([id number]) on 12/22/2018 1:37:35 PM Referred By: DR GREENBERG Confirmed By:GERALD KHOURY MD
== END 2018-12-22 13:15 | disposition home or self-care (01) ==
LOC: FER 16:40 → FM/S 19:33 → UNDOADMOB 20:26
PROVIDERS: ADMIT Internal Medicine; ATTEND Nurse Practitioner Acute Care
DX: M25.512 Pain in left shoulder (principal); E03.9 Hypothyroidism, unspecified; G30.9 Alzheimer's disease, unspecified; F02.81 Dementia in other diseases classified elsewhere, unspecified severity, with behavioral disturbance; B02.9 Zoster without complications; Z95.4 Presence of other heart-valve replacement; Z95.0 Presence of cardiac pacemaker; Z88.0 Allergy status to penicillin; Z88.1 Allergy status to other antibiotic agents; Z88.8 Allergy status to other drugs, medicaments and biological substances
CPT/HCPCS: 36415; 71045-TC-FY; 73030-TC-LT-FY; 80053; 81003; 83735; 83880; 84443; 84484; 85025; 85027; 87086; 93005; 99285-25; G0378

== ENCOUNTER 2020-04-09 05:52 | Emergency (ER) | payer OTHER, MEDICARE ==
[2020-04-09 06:16] VITALS: BP 135/76; PULSE 66; TEMP 97.7; BMI 23.4
--- NOTE | 2020-04-09 06:17 | PDOC ---
History of Present Illness - General Chief Complaint: Injury Stated Complaint: FELL OUT OF BED, LAC TO HEAD Time Seen by Provider: 04/09/20 06:03 History Source: Patient Exam Limitations: No Limitations - History of Present Illness Initial Comments: 04/09/20 06:17 This is a 74-year-old female brought in by her for evaluation of a laceration on the top of her head. Patient fell out of bed. Hit her head. Her said that she has Alzheimer's dementia and likes to sleep towards the edge of the bed and rolled over and fell out hitting her head on some furniture. Patient is too demented to give a history. However said that she is otherwise healthy. Allergies: as per nursing notes Past Medical History: none Social history: Lives with family. No smoking. No alcohol. No illicit drugs. Surgical history: None General: No fevers or chills, no weakness, no weight loss HEENT: No change in vision. No sore throat,. No ear pain laceration to top of head CardioVascular: no chest discomfort. No shortness of breath Respiratory:No cough, or wheezing. Gastrointestinal: no nausea, vomiting, diarrhea or constipation, No rectal bleeding Genitourinary: No dysuria, hematuria, or frequency Musculoskeletal: No joint or muscle pain or swelling Neurologic: No headache, vertigo, dizziness or loss of consciousness Psychiatric: nor depression Skin: No rashes or easy bruising Endocrine: no increased thirst or abnormal weight change Allergic: no skin or latex allergy All other systems reviewed and normal Exam: General: Well-nourished well-developed individual, no acute distress HEENT: Throat: Normal, tonsils normal, no erythema or exudate Neck: Supple, no meningeal signs, no lymphadenopathy Scalp: There is approximately a 4 cm laceration to the top of the head with no active bleeding at this time. Cervical spine: There is no tenderness on palpation of the cervical spine Eyes::Pupils equal reactive and round, extraocular motion intact Chest: Nontender to palpation Cardiac: S1-S2 normal, regular rate and rhythm, no murmurs rubs or gallops Respiratory: Lungs clear to auscultation bilateral Abdomen: Soft, nondistended, normal bowel sounds, there is no tenderness on palpation diffusely Extremities: Warm, dry, no cyanosis, clubbing, or edema Skin: No rashes Neuro: Alert and oriented x0, nonfocal exam with normal strength, normal sensation, grossly intact Psych: Normal mood and affect Assessment and plan: This is a 74-year-old female who has a laceration to the top of her head as result of falling out of her bed. Laceration was closed with sophia. Patient is awaiting a CT scan of the head and neck. Procedure note laceration repair Laceration was anesthetized with 1% lidocaine no epi The laceration was closed with a total of 5 sophia. Bacitracin and sterile dressing was applied and patient tolerated well CT of head and neck were negative for any acute pathology. 04/14/20 06:47 Past History - Medical History Allergies/Adverse Reactions: Allergies Allergy/AdvReac Type Severity Reaction Status Date / Time erythromycin base Allergy Verified 04/09/20 06:03 house dust mite Allergy Verified 04/09/20 06:03 latex Allergy Verified 04/09/20 06:03 oxytetracycline Allergy Verified 04/09/20 06:03 [From Terramycin] Penicillins Allergy Verified 04/09/20 06:03 povidone-iodine Allergy Verified 04/09/20 06:03 [From Betadine] procaine [From Novocain] Allergy Verified 04/09/20 06:03 soap [From Betadine] Allergy Verified 04/09/20 06:03 aueomycin Allergy Uncoded 04/09/20 06:03 tape Allergy Uncoded 04/09/20 06:03 Home Medications: Ambulatory Orders Levothyroxine [Synthroid -] 100 mcg PO DAILY 12/21/18 Paroxetine HCl 0 mg PO 04/09/20 Asthma: Yes Cardiac Disorders: Yes (P.E.,) COPD: No Dementia: Yes GI Disorders: Yes (gerd) Thyroid Disease: Yes (hypo) - Psycho-Social/Smoking History Smoking History: Unknown if ever smoked Discharge - Discharge Information Problems reviewed: Yes Clinical Impression/Diagnosis: Scalp laceration Qualifiers: Encounter type: initial encounter Qualified Code(s): S01.01XA - Laceration without foreign body of scalp, initial encounter Closed head injury Qualifiers: Encounter type: initial encounter Qualified Code(s): S09.90XA - Unspecified injury of head, initial encounter Condition: Stable Disposition: HOME - Follow up/Referral Referrals: Emiliano Tang MD [Primary Care Provider] - - Patient Discharge Instructions Patient Printed Discharge Instructions: DI for Laceration Repair, How to Prevent Falls, DI for Closed Head Injury Additional Instructions: RETURN IN 7 DAYS FOR STAPLE REMOVAL - YOU HAD A LACERATION OF YOUR SCALP. CLEAN AND WASH TWICE A DAY WITH SIMPLE SOAP AND WATER, MINIMIZE INFECTION OF THE AREA. MONITOR FOR SIGNS OF INFECTION SUCH DEHISCENCE, DISCHARGE, ODOR, PAIN, REDNESS, SWELLING FALL PREVENTION AT HOME WHAT YOU NEED TO KNOW There are many different factors that can increase your risk of falls. Falls can happen any time, but the majority of them occur in the home. Fall prevention includes ways to make your home and other areas safer. It also includes ways you can move more carefully to prevent a fall. Health conditions that cause changes in your blood pressure, vision, or muscle strength and coordination may increase your risk for falls. Medicines, including anesthesia, may increase your risk for falls if they make you dizzy, weak, or sleepy. FALL PREVENTION TIPS Stand or sit up slowly. This may help you keep your balance and prevent falls. Do not walk and talk at the same time. Concentrate on the task of walking and continue the conversation after you've reached a safe place. Wear shoes that fit well and have soles that rural health consultant. Wear shoes both inside and outside. Use slippers with good rural health consultant. Avoid shoes with high heels. Use assertive devices as directed. Your healthcare provider may suggest that you use a cane or walker to help you keep you balance. Be sure you have adequate lighting throughout your house. Keep paths clear. Remove books, shoes and other objects from walkways and stairs. Keep cords for telephones and lamps out of the way so you dont need to walk over them. Remove small rugs or secure them with double-sided tape. This will prevent you from tripping. Use a nightlight when getting out of bed at night. Stay active to maintain overall strength and endurance. Know your limitations. If there is a task you can not complete with ease, do not risk a fall by trying to complete it. Call 911 or have someone else call if: You have fallen and are unconscious You have fallen and cannot move part of your body Contact your healthcare provider if: You have fallen and have pain or a headache You have questions or concerns about your condition or care. - Post Discharge Activity
[2020-04-09] MEDS ORDERED: PARoxetine HCL 10 MG TABLET PO ONE (07:20)
--- NOTE | 2020-04-09 07:40 | PDOC ---
*Physical Exam - Vital Signs Last Vital Signs Temp Pulse Resp BP Pulse Ox 97.7 F 66 18 135/76 99 04/09/20 06:05 04/09/20 06:05 04/09/20 06:05 04/09/20 06:05 04/09/20 06:05 Medical Decision Making - Medical Decision Making 04/09/20 07:39 Vital Signs Temp Pulse Resp BP Pulse Ox 97.7 F 66 18 135/76 99 04/09/20 06:05 04/09/20 06:05 04/09/20 06:05 04/09/20 06:05 04/09/20 06:05 pt signed out from Dr Heath at 7AM pending imaging in summary, 74 YOF presenting after mechanical fall this morning. +head injury scalp laceration repaired by prior attg. vitals wnl given paxil in the morning, takes for her dementia. additional haldol needed for her agitation, pt keeps getting out of bed, fall risk 04/09/20 09:47 CT head neg for acute pathology, volume loss changes c/w dementia cervical spine neg for fx/subluxation fall prevention reviewed staple removal in 7 days wound care instructions DC stable condition with , made aware of impression and plan, agreeable. return precautions reviewed 04/09/20 09:53 Discharge - Discharge Information Problems reviewed: Yes Clinical Impression/Diagnosis: Scalp laceration Qualifiers: Encounter type: initial encounter Qualified Code(s): S01.01XA - Laceration without foreign body of scalp, initial encounter Closed head injury Qualifiers: Encounter type: initial encounter Qualified Code(s): S09.90XA - Unspecified injury of head, initial encounter Condition: Stable - Admission No - Follow up/Referral Referrals: Emiliano Tang MD [Primary Care Provider] - - Patient Discharge Instructions Patient Printed Discharge Instructions: DI for Laceration Repair, How to Prevent Falls, DI for Closed Head Injury Additional Instructions: RETURN IN 7 DAYS FOR STAPLE REMOVAL - YOU HAD A LACERATION OF YOUR SCALP. CLEAN AND WASH TWICE A DAY WITH SIMPLE SOAP AND WATER, MINIMIZE INFECTION OF THE AREA. MONITOR FOR SIGNS OF INFECTION SUCH DEHISCENCE, DISCHARGE, ODOR, PAIN, REDNESS, SWELLING FALL PREVENTION AT HOME WHAT YOU NEED TO KNOW There are many different factors that can increase your risk of falls. Falls can happen any time, but the majority of them occur in the home. Fall prevention includes ways to make your home and other areas safer. It also includes ways you can move more carefully to prevent a fall. Health conditions that cause changes in your blood pressure, vision, or muscle strength and coordination may increase your risk for falls. Medicines, including anesthesia, may increase your risk for falls if they make you dizzy, weak, or sleepy. FALL PREVENTION TIPS Stand or sit up slowly. This may help you keep your balance and prevent falls. Do not walk and talk at the same time. Concentrate on the task of walking and continue the conversation after you've reached a safe place. Wear shoes that fit well and have soles that sponge clipper. Wear shoes both inside and outside. Use slippers with good sponge clipper. Avoid shoes with high heels. Use assertive devices as directed. Your healthcare provider may suggest that you use a cane or walker to help you keep you balance. Be sure you have adequate lighting throughout your house. Keep paths clear. Remove books, shoes and other objects from walkways and stairs. Keep cords for telephones and lamps out of the way so you dont need to walk over them. Remove small rugs or secure them with double-sided tape. This will prevent you from tripping. Use a nightlight when getting out of bed at night. Stay active to maintain overall strength and endurance. Know your limitations. If there is a task you can not complete with ease, do not risk a fall by trying to complete it. Call 911 or have someone else call if: You have fallen and are unconscious You have fallen and cannot move part of your body Contact your healthcare provider if: You have fallen and have pain or a headache You have questions or concerns about your condition or care. - Post Discharge Activity
[2020-04-09] MEDS ORDERED: HALOPERIDOL LACTATE 5 MG/ML IM ONE (08:12)
[2020-04-09] MEDS ORDERED: HALOPERIDOL LACTATE 5 MG/ML ONE (08:17)
== END 2020-04-09 09:50 | disposition home or self-care (01) ==
LOC: FER 05:52
PROC: 3E0233Z Introduction of Anti-inflammatory into Muscle, Percutaneous Approach (ICD-10-PCS; principal; 2020-04-09)
DX: S01.01XA Laceration without foreign body of scalp, initial encounter (principal); S09.90XA Unspecified injury of head, initial encounter
CPT/HCPCS: 70450-TC; 72125-TC; 99284-25

== ENCOUNTER 2020-04-16 11:53 | Emergency (ER) | payer OTHER, MEDICARE ==
[2020-04-16 12:04] VITALS: BP 112/87; PULSE 77; TEMP 98.4; BMI 23.4
--- NOTE | 2020-04-16 12:08 | PDOC ---
Suture Removal/Wound Check HPI - History of Present Illness Chief Complaint: Suture/Staple Removal(Here) Stated Complaint: STAPLE REMOVAL Time Seen by Provider: 04/16/20 12:08 - Onset of Previous Treatment Comment:: 04/16/20 13:06 Chief complaint: Removal of sophia HPI: Patient fell approximately 1 week ago, sustaining a scalp laceration. This was repaired with sophia. She is scheduled today for staple removal. A CT of the brain and cervical spine were done at the time of the injury. They were negative. Review of systems: There is been no headache, bleeding, erythema, warmth, or drainage from the wound. Patient has severe dementia which seems to be mildly aggravated since the fall but she is mentally and physically stable according to her . Exam: Confused but fully awake and active, no acute distress. Vital signs normal Vertical laceration extending from the upper forehead into the scalp. Wound is well-healed. There is no swelling, hematoma, crepitus, tenderness, or drainage. Sophia are in place. PERRLA, ENT clear Neck without tenderness or deformity, good range of motion without pain Lungs clear, full breath sounds bilaterally CV regular without murmur rub or gallop Abdomen benign No sign of trauma to the extremities. Neurological appears intact. There is no focal deficit apparent. However, cooperation is limited due to her dementia. Assessment: Neurologically stable, wound healed well, Plan: [place] were removed without difficulty. Wound edges aligned and healing together well. Dressed with bacitracin and Band-Aid. Wound care discussed with . No distress at discharge with family. Past History - Medical History Allergies/Adverse Reactions: Allergies Allergy/AdvReac Type Severity Reaction Status Date / Time erythromycin base Allergy Verified 04/16/20 11:55 house dust mite Allergy Verified 04/16/20 11:55 latex Allergy Verified 04/16/20 11:55 oxytetracycline Allergy Verified 04/16/20 11:55 [From Terramycin] Penicillins Allergy Verified 04/16/20 11:55 povidone-iodine Allergy Verified 04/16/20 11:55 [From Betadine] procaine [From Novocain] Allergy Verified 04/16/20 11:55 soap [From Betadine] Allergy Verified 04/16/20 11:55 aueomycin Allergy Uncoded 04/09/20 06:03 tape Allergy Uncoded 04/09/20 06:03 Home Medications: Ambulatory Orders Levothyroxine [Synthroid -] 100 mcg PO DAILY 12/21/18 Paroxetine HCl 0 mg PO DAILY 04/09/20 Asthma: Yes Cardiac Disorders: Yes (P.E.,) COPD: No Dementia: Yes GI Disorders: Yes (gerd) Hypercholesterolemia: Yes Psychiatric Problems: Yes (DEMENTIA) Thyroid Disease: Yes (hypo) - Surgical History Cardiac Surgery: Yes (AORTIC VALVE REPLACEMENT 07/10/03, PACEMAKER) - Psycho-Social/Smoking History Smoking History: Never smoked Have you smoked in the past 12 months: No If you are a former smoker, when did you quit?: 25 YEARS AGO Information on smoking cessation initiated: No - Substance Abuse Hx (Audit-C & DAST Scrn) How often the patient has a drink containing alcohol: Never Score: In Men: 4 or > Positive; In Women: 3 or > Positive: 0 Screen Result (Pos requires Nsg. Audit-10AR): Negative In the last yr the pt used illegal drug/Rx for NonMed reason: No Score: Yes response is considered Positive: 0 Screen Result (Positive result requires Nsg. DAST-10): Negative *Physical Exam - Vital Signs Last Vital Signs Temp Pulse Resp BP Pulse Ox 98.4 F 77 16 112/87 100 04/16/20 11:54 04/16/20 11:54 04/16/20 11:54 04/16/20 11:54 04/16/20 11:54 Discharge - Discharge Information Problems reviewed: Yes Clinical Impression/Diagnosis: Removal of sophia Condition: Improved Disposition: HOME - Admission No - Follow up/Referral - Patient Discharge Instructions Patient Printed Discharge Instructions: DI for Suture Removal Additional Instructions: Apply antibiotic ointment and change Band-Aid daily. See family physician or return to ER if there is any sign of infection or persistent bleeding. - Post Discharge Activity
== END 2020-04-16 13:28 | disposition home or self-care (01) ==
LOC: FER 11:53
DX: Z48.02 Encounter for removal of sutures (principal)
CPT/HCPCS: 99281-25